=== PATIENT | female | born 1995 | race African-American/Black ===

== ENCOUNTER 2017-10-24 22:10 | Emergency (ER) | payer MEDICAID, SELFPAY ==
[2017-10-24] MEDS ORDERED: Ibuprofen 800 MG TAB ONE (23:42)
[2017-10-24] MEDS ORDERED: Acetaminophen 500 MG TAB ONE (23:42)
== END 2017-10-24 23:49 | disposition home or self-care (01) ==
LOC: ERS 22:10
DX: L08.9 Local infection of the skin and subcutaneous tissue, unspecified (principal); F41.9 Anxiety disorder, unspecified
CPT/HCPCS: 99282

== ENCOUNTER 2018-07-10 12:20 | Emergency (ER) | payer SELFPAY ==
[2018-07-10] MEDS ORDERED: Bicillin LA 1.2 MILLION UNITS/2 ML SYRINGE ONE (13:48)
[2018-07-10] MEDS ORDERED: Dexamethasone 10 MG/ML VIAL ONE (13:49)
== END 2018-07-10 13:52 | disposition home or self-care (01) ==
LOC: ERS 12:20
DX: J02.9 Acute pharyngitis, unspecified (principal); F41.9 Anxiety disorder, unspecified
CPT/HCPCS: 87081; 87430; 96372; J0561; J1100

== ENCOUNTER 2019-01-07 11:21 | Emergency (ER) | payer SELFPAY ==
[2019-01-07 12:42] LABS: Bilirubin Negative (Negative); Blood, Urine 2+ (Negative); Clarity Clear (Clear); Glucose, Urine (Dipstick) Normal (Negative); Leukocyte Negative Leu/uL (Negative); Nitrite Negative (Negative); Protein, Urine (Dipstick) Negative (Neg-Trace); RBC/HPF 0-3 HPF (0-3); Squamous Epithelial 0-3 HPF (0-3); Urobilinogen Normal mg/dL (Less than 2); WBC/HPF 0-3 HPF (0-3)
[2019-01-07 12:47] LABS: Bacteria/HPF None Seen HPF (None Seen)
[2019-01-07 12:48] LABS: Pregnancy Test - Urine (BHCG) Negative (Negative); Pregu Control Bar Appear? YES (CONTROL BAR); Specific Gravity 1.016 (1.002-1.036)
[2019-01-07 12:49] LABS: Pregu Control Background? CLEAR/WHITE (CLR/WHITE)
== END 2019-01-07 13:35 | disposition home or self-care (01) ==
LOC: ERS 11:21
DX: N93.8 Other specified abnormal uterine and vaginal bleeding (principal); F41.9 Anxiety disorder, unspecified
CPT/HCPCS: 81003; 81025; 99284

== ENCOUNTER 2019-04-05 12:20 | Emergency (ER) | payer SELFPAY ==
--- NOTE | 2019-04-05 12:52 | RAD ---
XR Ankle Rt 3 View STANDARD HISTORY: Right ankle injury COMPARISON: None. FINDINGS: There are no signs of fracture, dislocation or joint effusion. IMPRESSION: Negative right ankle.
== END 2019-04-05 13:32 | disposition home or self-care (01) ==
LOC: ERS 12:20
DX: S93.401A Sprain of unspecified ligament of right ankle, initial encounter (principal); G43.909 Migraine, unspecified, not intractable, without status migrainosus; F41.9 Anxiety disorder, unspecified; W22.8XXA Striking against or struck by other objects, initial encounter
CPT/HCPCS: 29515

== ENCOUNTER 2024-03-18 16:16 | Emergency (ER) | payer SELFPAY ==
[2024-03-18 16:44] LABS: Bacteria/HPF None Seen HPF (None Seen); Bilirubin Negative (Negative); Blood, Urine Negative (Negative); CAUTI Indications for Culture Dysuria,urgency,freq; Clarity Clear (Clear); Glucose, Urine (Dipstick) Normal (Negative); Ketone, Urine Negative (Negative); Leukocyte Negative Leu/uL (Negative); Nitrite Negative (Negative); Pregnancy Test - Urine (BHCG) Negative (Negative); Protein, Urine (Dipstick) Negative (Neg-Trace); RBC/HPF 0-3 HPF (0-3); Specific Gravity, Urine 1.008 (1.002-1.036); Squamous Epithelial 0-3 HPF (0-3); Urobilinogen Normal mg/dL (Less than 2); WBC/HPF 0-3 HPF (0-3); pH, Urine 6.5 (5.0-9.0)
[2024-03-18 16:45] LABS: Pregu Control Background? CLEAR/WHITE (CLR/WHITE); Pregu Control Bar Appear? YES (CONTROL BAR); Specific Gravity 1.008 (1.002-1.036); Urine Culture Reflex No No
== END 2024-03-18 17:40 | disposition home or self-care (01) ==
LOC: ERS 16:16
DX: R30.0 Dysuria (principal); M54.50 Low back pain, unspecified
CPT/HCPCS: 81001; 81025; 99283

== ENCOUNTER 2024-06-22 20:23 | Emergency (ER) | payer MEDICAID ==
[2024-06-22 20:57] LABS: #Basophils 0.05 10x3/uL (0.0-0.2); %Basophils 0.4 % (0.0-1.0); %Eosinophils 2.8 % (0.0-10.0); %Lymphocytes 18.5 % (21.0-51.0); %Monocytes 11.4 % (0.0-10.0); %Neutrophils 66.4 % (42.0-75.0); Hematocrit 35.7 % (36.0-47.0); Mean Corpuscular HGB CONC 33.6 g/dL (32.0-36.0); Mean Corpuscular Hemoglobin 25.4 pg (27.0-31.0); Mean Corpuscular Volume 75.6 fL (78.0-98.0); Mean Platelet Volume 9.7 fL (7.4-10.4); Platelet Count 346 10x3/uL (130-400); RBC Distribution Width 13.9 % (11.5-14.5); Red Blood Cell (RBC) Count 4.72 mill/uL (4.20-5.40)
[2024-06-22 21:05] LABS: BHCG - Serum POSITIVE (NEGATIVE); Pregs Control Background? CLEAR/WHITE (CLR/WHITE); Pregs Control Bar Appear? YES (CONTROL BAR)
[2024-06-22 21:14] LABS: ALT (SGPT) 12 U/L (8-55); AST (SGOT) 16 U/L (5-34); Albumin 3.3 g/dL (3.5-5.0); Alkaline Phosphatase 88 U/L (40-110); Anion Gap 15 mmol/L (10-20); BUN (Urea Nitrogen) 13 mg/dL (7.0-18.7); Bilirubin, Total 0.5 mg/dL (0.2-1.2); Calc. Creatinine Clearance 0 mL/min (70-130); Calcium 9.6 mg/dL (7.8-10.44); Carbon Dioxide 20 mmol/L (22-29); Chloride 100 mmol/L (98-107); Estimated GFR 102; Globulin 5.4 g/dL (2.4-3.5); Glucose 105 mg/dL (70-105); Potassium 3.4 mmol/L (3.5-5.1); Protein, Total 8.7 g/dL (6.0-8.3); Sodium 132 mmol/L (136-145)
[2024-06-23] MEDS ORDERED: Acetaminophen 500 MG TAB ONE (00:09)
== END 2024-06-23 01:40 | disposition home or self-care (01) ==
LOC: ERS 20:23
DX: O00.80 Other ectopic pregnancy without intrauterine pregnancy (principal); M54.6 Pain in thoracic spine
CPT/HCPCS: 36415; 76856; 84702; 84703; 86900; 86901